=== PATIENT | male | born 1995 | race Two or more races ===

== ENCOUNTER 2017-12-08 22:18 | Emergency (ER) | payer SELFPAY ==
[~2017-12-08] VITALS: Ht 170.2 cm; Wt 68.0 kg
[2017-12-09 02:41] VITALS: BP 124/80
[2017-12-09] MEDS ORDERED: cefTRIAXone SOD 1,000 MG VL IM ONE (03:45)
== END 2017-12-09 03:12 | disposition home or self-care (01) ==
LOC: ER 22:18
DX: S01.01XA Laceration without foreign body of scalp, initial encounter (principal); Y08.89XA Assault by other specified means, initial encounter; Y93.89 Activity, other specified; Y99.8 Other external cause status; Y92.89 Other specified places as the place of occurrence of the external cause
CPT/HCPCS: 12002; 70450; 96372